=== PATIENT | male | born 1990 | race Caucasian/White ===

== ENCOUNTER 2024-09-06 11:15 | Outpatient (CLI) | payer BC, SELFPAY ==
--- NOTE | 2024-09-06 12:22 | W.ANESCHARGE ---
Anesthesia Charges Start Date/Time Anesthesia Start Date: 09/06/24 Anesthesia Start Time: 11:53 Stop Date/Time Anesthesia Stop Date: 09/06/24 Anesthesia Stop Time: 12:18
--- NOTE | 2024-09-06 12:59 | W.ANESCHARGE ---
Anesthesia Charges Start Date/Time Anesthesia Start Date: 09/06/24 Anesthesia Start Time: 11:53 Stop Date/Time Anesthesia Stop Date: 09/06/24 Anesthesia Stop Time: 12:18
== END 2024-09-06 11:16 | disposition home or self-care (01) ==
PROVIDERS: PCP Family Medicine; Visit Provider Internal Medicine
DX: K92.1 Melena (principal); R19.4 Change in bowel habit; R19.7 Diarrhea, unspecified; K62.5 Hemorrhage of anus and rectum; K63.89 Other specified diseases of intestine; K92.2 Gastrointestinal hemorrhage, unspecified; K52.9 Noninfective gastroenteritis and colitis, unspecified
CPT/HCPCS: 00811; 45380; 88305; 88342; J2704

== ENCOUNTER 2024-09-26 12:39 | Outpatient (CLI) | payer BC, SELFPAY ==
--- NOTE | 2024-09-26 13:00 | CRLHL7_ITS ---
For Patients: As a result of the Century Cures Act, medical imaging exams and procedure reports are released immediately into your electronic medical record. You may view this report before your referring provider. If you have questions, please contact your health care provider. INDICATION: COLITIS, CHRONIC DIARRHEA TECHNIQUE: CT abdomen and pelvis acquired with 130 cc Isovue 370 IV contrast. Enterography protocol. COMPARISON: None. FINDINGS: Lower chest: The visualized lower lungs are aerated. No pleural or pericardial effusion. ABDOMEN: Liver: Normal enhancement. No focal suspicious hepatic lesions. Gallbladder and biliary: Normal gallbladder without radiopaque stone. Normal caliber bile ducts. Spleen: Normal size and enhancement. Pancreas: Normal enhancement without peripancreatic inflammatory changes or ductal dilatation. Adrenal glands: Normal adrenal glands. Kidneys and ureters: Normal enhancement. No radio-opaque calculi. No hydroureteronephrosis. GI tract: The stomach is relatively decompressed. Normal caliber small and large bowel loops. Normal appendix. Circumferential mucosal wall thickening and hyperemia with mild pericolonic stranding extending from the descending colon to the anorectal junction. No discrete complex penetrating disease, tethering, or stenotic dilatation. Vascular structures: Normal caliber abdominal aorta. Lymph nodes: Prominent but not enlarged lymph nodes involving the mesorectal fat, MORAIMA chain lymph nodes, and left lower quadrant lymph nodes as well as some periaortic lymph nodes. Peritoneum: No free air, free fluid, or focal drainable fluid collection. PELVIS: Genitourinary system: Normal urinary bladder. SKELETAL STRUCTURES AND SOFT TISSUES: No suspicious lytic or blastic lesions. IMPRESSION: Circumferential mucosal wall thickening and hyperemia with mild pericolonic stranding extending from the descending colon to the anorectal junction. No discrete complex penetrating disease, tethering, or stenotic dilatation. Prominent but not enlarged lymph nodes involving the mesorectal fat, MORAIMA chain lymph nodes, and left lower quadrant lymph nodes as well as some periaortic lymph nodes. Findings suggest underlying colitis, possibly of inflammatory bowel disease origin such as ulcerative colitis. Please note that all CT scans at this facility use dose modulation, iterative reconstruction, and/or weight-based dosing when appropriate to reduce radiation dose to as low as reasonably achievable. Dictated by Favian Hall MD @ 09/28/2024 5:03:40 PM (Electronically Signed)
== END 2024-09-26 12:40 | disposition home or self-care (01) ==
LOC: CT 12:40
PROVIDERS: PCP Family Medicine; Visit Provider Internal Medicine
DX: K52.9 Noninfective gastroenteritis and colitis, unspecified (principal)
CPT/HCPCS: 74177; Q9967